=== PATIENT | female | born 1955 | race Caucasian/White ===

== ENCOUNTER 2022-03-27 12:14 | Emergency (ER) | payer MEDICARE ==
[2022-03-27 13:09] LABS: Bacteria/HPF None Seen HPF (None Seen); Bilirubin Negative (Negative); Blood, Urine Negative (Negative); Clarity Clear (Clear); Glucose, Urine (Dipstick) Normal (Negative); Ketone, Urine Negative (Negative); Leukocyte 250 Leu/uL (Negative); Nitrite Negative (Negative); Protein, Urine (Dipstick) Negative (Neg-Trace); RBC/HPF 0-3 HPF (0-3); Specific Gravity, Urine 1.005 (1.002-1.036); Squamous Epithelial 0-3 HPF (0-3); Urobilinogen Normal mg/dL (Less than 2)
[2022-03-27 13:22] LABS: #Lymphocytes 0.9 thou/uL (1.20-3.40); #Monocytes 0.9 thou/uL (0.11-0.59); #Neutrophils 11.7 thou/uL (1.40-6.50); %Basophils 0.1 % (0.0-1.0); %Eosinophils 0.1 % (0.0-10.0); %Lymphocytes 6.6 % (21.0-51.0); %Monocytes 6.5 % (0.0-10.0); %Neutrophils 86.7 % (42.0-75.0); Hemoglobin 14.9 g/dL (12.0-16.0); Mean Corpuscular HGB CONC 33.1 g/dL (32.0-36.0); Mean Corpuscular Hemoglobin 27.7 pg (27.0-31.0); Mean Corpuscular Volume 83.6 fl (78.0-98.0); Mean Platelet Volume 7.7 fL (7.4-10.4); Platelet Count 378 10x3/uL (130-400); RBC Distribution Width 12.9 % (11.5-14.5); Red Blood Cell (RBC) Count 5.39 mill/uL (4.20-5.40); White Blood Cell (WBC) Count 13.5 10x3/uL (4.8-10.8)
[2022-03-27 15:27] LABS: Albumin 3.8 g/dL (3.4-4.8)
[2022-03-27 15:28] LABS: Chloride 105 mmol/L (98-107); Potassium 3.9 mmol/L (3.5-5.1); Sodium 140 mmol/L (136-145)
[2022-03-27 15:29] LABS: Calcium 9.2 mg/dL (7.8-10.44); Glucose 93 mg/dL (80-115)
[2022-03-27 15:30] LABS: Globulin 3.6 g/dL (2.4-3.5); Protein, Total 7.4 g/dL (5.8-8.1)
[2022-03-27 15:31] LABS: Anion Gap 12 mmol/L (10-20); Bilirubin, Total 0.6 mg/dL (0.2-1.2); Carbon Dioxide 27 mmol/L (23-31)
[2022-03-27 15:32] LABS: Alkaline Phosphatase 74 U/L (40-110)
[2022-03-27 15:33] LABS: BUN (Urea Nitrogen) 9 mg/dL (9.8-20.1); Calc. Creatinine Clearance 0 mL/min (70-130); Estimated GFR 97
[2022-03-27 15:34] LABS: AST (SGOT) 33 U/L (5-34)
[2022-03-27 15:35] LABS: ALT (SGPT) Less than 35 U/L (8-55)
== END 2022-03-27 16:04 | disposition home or self-care (01) ==
LOC: ERS 12:14
DX: R19.7 Diarrhea, unspecified (principal); I10 Essential (primary) hypertension; K21.9 Gastro-esophageal reflux disease without esophagitis; J44.9 Chronic obstructive pulmonary disease, unspecified; M19.90 Unspecified osteoarthritis, unspecified site; M79.7 Fibromyalgia; Z79.899 Other long term (current) drug therapy
CPT/HCPCS: 36415; 80053; 81003; 81015; 85025; 96360; 96361

== ENCOUNTER 2022-04-09 17:28 | Inpatient (IN) | payer MEDICARE ==
[~2022-04-09 17:28] MED LIST: Iopamidol-370 76% 500 ML 1 ML ONE
[2022-04-09 18:47] LABS: Actual Bicarbonate (HCO3v) 26 mEq/L (22-28); Analyzer IN Cardio ER; Base Excess 0.3 mEq/L (-2.0 to +3.0); Calcium, Ionized (venous) 1.05 mmol/L (1.16-1.32); Chloride (VBG) 100 mmol/L (98-106); Hemoglobin (Hb) 13.7 g/dL (11.7-16.1); Potassium (VBG) 3.76 mmol/L (3.70-5.30); Sodium 133.9 mmol/L (133-146); pH (venous) 7.38 (7.32-7.43)
[2022-04-09 18:57] LABS: Hemoglobin 12.8 g/dL (12.0-16.0); Mean Corpuscular HGB CONC 33.7 g/dL (32.0-36.0); Mean Corpuscular Hemoglobin 28.8 pg (27.0-31.0); Mean Corpuscular Volume 85.5 fl (78.0-98.0); Platelet Count 252 10x3/uL (130-400); RBC Distribution Width 13.5 % (11.5-14.5); Red Blood Cell (RBC) Count 4.43 mill/uL (4.20-5.40); White Blood Cell (WBC) Count 23.4 10x3/uL (4.8-10.8)
[2022-04-09 19:14] LABS: Band 18 % (5-11); Eosinophils 1 % (0-10); Lymphocytes 3 % (21-51); MDiff Complete? YES; Monocytes 4 % (0-10); Neutrophil 73 % (42-75); Platelet Morphology Comment Appears Adequate; RBC Morphology Normal
[2022-04-09 19:19] LABS: ALT (SGPT) 12 U/L (8-55); AST (SGOT) 16 U/L (5-34); Albumin 3.2 g/dL (3.4-4.8); Alkaline Phosphatase 72 U/L (40-110); Anion Gap 13 mmol/L (10-20); BUN (Urea Nitrogen) 5 mg/dL (9.8-20.1); Bilirubin, Total 1.1 mg/dL (0.2-1.2); Calc. Creatinine Clearance 0 mL/min (70-130); Calcium 8.5 mg/dL (7.8-10.44); Carbon Dioxide 24 mmol/L (23-31); Chloride 101 mmol/L (98-107); Estimated GFR 87; Globulin 2.9 g/dL (2.4-3.5); Glucose 105 mg/dL (80-115); Potassium 3.8 mmol/L (3.5-5.1); Protein, Total 6.1 g/dL (5.8-8.1); Sodium 134 mmol/L (136-145)
[2022-04-09 20:52] LABS: Bacteria/HPF 4+ HPF (None Seen); Bilirubin Negative (Negative); Blood, Urine Negative (Negative); Clarity Turbid (Clear); Glucose, Urine (Dipstick) Normal (Negative); Ketone, Urine 20 mg/dL (Negative); Leukocyte 500 Leu/uL (Negative); Mucous/LPF Rare LPF (<2+); Nitrite Negative (Negative); Protein, Urine (Dipstick) 100 mg/dL (Neg-Trace); Renal Epithelial 0-3 HPF (None Seen); Specific Gravity, Urine 1.021 (1.002-1.036); Squamous Epithelial 21-50 HPF (0-3); Transitional Epithelial 0-3 HPF (None Seen); Urobilinogen Normal mg/dL (Less than 2); WBC/HPF Greater than 50 HPF (0-3); pH, Urine 5.5 (5.0-9.0)
[2022-04-09] MEDS ORDERED: Bisacodyl 5 MG TAB PO PRN (21:57)
[2022-04-09] MEDS ORDERED: Ondansetron PF 4 MG/2 ML Vial IVP PRN (21:57)
[2022-04-09] MEDS ORDERED: Senokot S 8.6-50 MG TAB PO PRN (21:57)
[2022-04-09] MEDS ORDERED: Bisacodyl 10 MG SUPP PR PRN (21:57)
[2022-04-09] MEDS ORDERED: Ondansetron ODT 4 MG TAB PO PRN (21:57)
[2022-04-09 22:14] LABS: Lactic Acid 1.9 mmol/L (0.5-2.2)
[2022-04-09] MEDS ORDERED: Morphine 4 MG/ML VIAL ONE (22:20)
[2022-04-09] MEDS ORDERED: diphenhydrAMINE 12.5 MG/5 ML UDCUP PO PRN (22:48)
[2022-04-09] MEDS ORDERED: Sodium Chloride 0.9% 1,000 ML IV SCH (23:00)
[2022-04-09] MEDS ORDERED: Meropenem 1 GM in Sodium Chloride 0.9% 100 ML IVPB SCH (23:00)
[2022-04-09] MEDS: Acetaminophen 325 MG TAB PO PRN (23:08)
[2022-04-09] MEDS: Sodium Chloride 0.9% 1,000 ML IV SCH (23:09)
[2022-04-09] MEDS ORDERED: Acetaminophen 325 MG TAB ONE (23:09)
[2022-04-09] MEDS ORDERED: Hydrocortisone Sod Succ/PF 100 mg/2 ml Vial IVP SCH (23:15)
[2022-04-10] MEDS ORDERED: Ondansetron ODT 4 MG TAB ONE (05:59)
[2022-04-10] MEDS ORDERED: Meropenem 1 GM in Sodium Chloride 0.9% 100 ML IVPB SCH ×2 (06:00→14:00)
[2022-04-10] MEDS ORDERED: Hydrocortisone Sod Succ/PF 100 mg/2 ml Vial IVP SCH (06:00)
[2022-04-10 06:41] LABS: Hemoglobin A1c 5.1 % (4.0-6.0)
[2022-04-10 06:56] LABS: ALT (SGPT) 15 U/L (8-55); AST (SGOT) 19 U/L (5-34); Albumin 3.2 g/dL (3.4-4.8); Alkaline Phosphatase 93 U/L (40-110); Anion Gap 19 mmol/L (10-20); BUN (Urea Nitrogen) 8 mg/dL (9.8-20.1); Bilirubin, Direct 0.5 mg/dL (0.1-0.3); Bilirubin, Total 1.1 mg/dL (0.2-1.2); Calc. Creatinine Clearance 0 mL/min (70-130); Calcium 8.9 mg/dL (7.8-10.44); Carbon Dioxide 20 mmol/L (23-31); Chloride 100 mmol/L (98-107); Estimated GFR 68; Glucose 88 mg/dL (80-115); Magnesium 1.5 mg/dL (1.6-2.6); Potassium 3.8 mmol/L (3.5-5.1); Protein, Total 6.4 g/dL (5.8-8.1); Sodium 135 mmol/L (136-145)
[2022-04-10 07:07] LABS: Hemoglobin 13.5 g/dL (12.0-16.0); Mean Corpuscular HGB CONC 31.9 g/dL (32.0-36.0); Mean Corpuscular Hemoglobin 27.6 pg (27.0-31.0); Mean Corpuscular Volume 86.4 fl (78.0-98.0); Mean Platelet Volume 8.1 fL (7.4-10.4); Platelet Count 283 10x3/uL (130-400); RBC Distribution Width 13.8 % (11.5-14.5); White Blood Cell (WBC) Count 21.9 10x3/uL (4.8-10.8)
[2022-04-10 08:03] LABS: Band 24 % (5-11); Burr Cells SLIGHT = 2-5 cells (100X) (0-1/hpf); Lymphocytes 3 % (21-51); MDiff Complete? YES; Monocytes 4 % (0-10); Neutrophil 69 % (42-75); Platelet Morphology Comment Appears Adequate; Polychromasia SLIGHT = 2-3 cells (100X) (0-2/hpf)
[2022-04-10] MEDS ORDERED: Vancomycin HCl 125 MG/5 ML (BATCHED) UDCUP PO SCH (09:00)
[2022-04-10] MEDS: Sodium Chloride 0.9% 1,000 ML IV SCH ×2 (10:11→22:21)
[2022-04-10] MEDS ORDERED: Loperamide HCl 2 MG CAP PO PRN (10:22)
[2022-04-10] MEDS: Meropenem 1 GM in Sodium Chloride 0.9% 100 ML IVPB SCH ×3 (11:03→22:24)
[2022-04-10] MEDS: Vancomycin HCl 125 MG/5 ML (BATCHED) UDCUP PO SCH ×4 (12:15→22:29)
[2022-04-10 14:59] VITALS: BMI 36.1
[2022-04-10] MEDS ORDERED: Non-Formulary Item 1 EACH (Albuterol Sulfate [Proair Digihaler] 90 MCG Aer.Pw.Bas) INH PRN (16:44)
[2022-04-10] MEDS ORDERED: Albuterol 200 PUFF (6.7GM INHALER) INH PRN (17:00)
[2022-04-10] MEDS: Ketorolac Tromethamine 30 MG/ML VIAL IVP PRN (22:27)
[2022-04-10] MEDS: Simvastatin 5 MG TAB PO SCH (22:29)
[2022-04-10] MEDS: Nortriptyline 10 MG CAP PO SCH (22:29)
[2022-04-11 05:32] LABS: Anion Gap 14 mmol/L (10-20); BUN (Urea Nitrogen) 14 mg/dL (9.8-20.1); Calc. Creatinine Clearance 85 mL/min (70-130); Calcium 8.2 mg/dL (7.8-10.44); Carbon Dioxide 21 mmol/L (23-31); Chloride 103 mmol/L (98-107); Estimated GFR 61; Glucose 86 mg/dL (80-115); Magnesium 1.4 mg/dL (1.6-2.6); Potassium 3.9 mmol/L (3.5-5.1); Sodium 134 mmol/L (136-145)
[2022-04-11 05:48] LABS: Band 40 % (5-11); Hemoglobin 11.3 g/dL (12.0-16.0); Hypochromia SLIGHT = 6-15 cells (100X) (0-5/hpf); Lymphocytes 2 % (21-51); MDiff Complete? YES; Mean Corpuscular HGB CONC 32.4 g/dL (32.0-36.0); Mean Corpuscular Hemoglobin 27.7 pg (27.0-31.0); Mean Corpuscular Volume 85.5 fl (78.0-98.0); Mean Platelet Volume 7.7 fL (7.4-10.4); Monocytes 3 % (0-10); Neutrophil 55 % (42-75); Platelet Count 288 10x3/uL (130-400); Platelet Morphology Comment Appears Adequate; RBC Distribution Width 13.7 % (11.5-14.5); Red Blood Cell (RBC) Count 4.08 mill/uL (4.20-5.40); White Blood Cell (WBC) Count 21.6 10x3/uL (4.8-10.8)
[2022-04-11] MEDS: Meropenem 1 GM in Sodium Chloride 0.9% 100 ML IVPB SCH ×3 (06:17→22:59)
[2022-04-11] MEDS: Mometasone 100 MCG/PUFF (1 INHALER) INH SCH ×2 (06:58→07:03)
[2022-04-11] MEDS: Vancomycin HCl 125 MG/5 ML (BATCHED) UDCUP PO SCH ×4 (08:53→21:31)
[2022-04-11] MEDS: Sodium Chloride 0.9% 1,000 ML IV SCH ×2 (08:58→21:27)
[2022-04-11] MEDS: Ketorolac Tromethamine 30 MG/ML VIAL IVP PRN (14:18)
[2022-04-11] MEDS: methylPREDNISolone Sod Succ 40 MG VIAL IVP SCH ×2 (14:18→21:40)
[2022-04-11] MEDS: diphenhydrAMINE 12.5 MG/5 ML UDCUP PO SCH ×3 (14:19→21:40)
[2022-04-11] MEDS ORDERED: Magnesium 2 GM/50 ML(in water) 2 GM in Premix Bag 1 BAG IVPB SCH ×2 (17:15→20:00)
[2022-04-11] MEDS: Nortriptyline 10 MG CAP PO SCH (21:30)
[2022-04-11] MEDS: Simvastatin 5 MG TAB PO SCH (21:30)
[2022-04-11] MEDS: Acetaminophen 325 MG TAB PO PRN (21:40)
[2022-04-11] MEDS ORDERED: ALPRAZolam 0.25 MG TAB PO SCH (23:00)
[2022-04-12 06:01] LABS: Anion Gap 12 mmol/L (10-20); BUN (Urea Nitrogen) 12 mg/dL (9.8-20.1); Calc. Creatinine Clearance 153 mL/min (70-130); Calcium 8.4 mg/dL (7.8-10.44); Carbon Dioxide 21 mmol/L (23-31); Chloride 105 mmol/L (98-107); Estimated GFR 101; Glucose 110 mg/dL (80-115); Sodium 134 mmol/L (136-145)
[2022-04-12 06:13] LABS: Hemoglobin 11.4 g/dL (12.0-16.0); Mean Corpuscular HGB CONC 33.1 g/dL (32.0-36.0); Mean Corpuscular Hemoglobin 28.5 pg (27.0-31.0); Mean Corpuscular Volume 86.2 fl (78.0-98.0); Mean Platelet Volume 7.8 fL (7.4-10.4); Platelet Count 292 10x3/uL (130-400); RBC Distribution Width 13.6 % (11.5-14.5); White Blood Cell (WBC) Count 19.8 10x3/uL (4.8-10.8)
[2022-04-12 06:14] LABS: Band 36 % (5-11); Hypochromia SLIGHT = 6-15 cells (100X) (0-5/hpf); Lymphocytes 1 % (21-51); MDiff Complete? YES; Neutrophil 63 % (42-75); Platelet Morphology Comment Appears Adequate
[2022-04-12] MEDS: methylPREDNISolone Sod Succ 40 MG VIAL IVP SCH ×2 (06:49→14:44)
[2022-04-12] MEDS: Meropenem 1 GM in Sodium Chloride 0.9% 100 ML IVPB SCH ×2 (06:49→14:43)
[2022-04-12] MEDS: Sodium Chloride 0.9% 1,000 ML IV SCH (08:45)
[2022-04-12] MEDS: diphenhydrAMINE 12.5 MG/5 ML UDCUP PO SCH ×2 (08:47→14:44)
[2022-04-12] MEDS: Vancomycin HCl 125 MG/5 ML (BATCHED) UDCUP PO SCH ×4 (08:47→20:55)
[2022-04-12] MEDS ORDERED: Mag-Al Plus 1200 MG/1200 MG/120 MG/30 ML UDCUP PO PRN (10:33)
[2022-04-12] MEDS ORDERED: Fosfomycin 3 GM/Packet PO SCH (16:00)
[2022-04-12] MEDS ORDERED: predniSONE 20 MG TAB PO SCH (16:15)
[2022-04-12] MEDS ORDERED: Ibuprofen 200 MG TAB PO PRN (16:21)
[2022-04-12] MEDS: Nortriptyline 10 MG CAP PO SCH (20:54)
[2022-04-12] MEDS: Simvastatin 5 MG TAB PO SCH (20:55)
[2022-04-12] MEDS: diphenhydrAMINE 25 MG CAP PO SCH (20:55)
[2022-04-12] MEDS ORDERED: ALPRAZolam 0.25 MG TAB PO SCH (21:00)
[2022-04-13 06:30] LABS: Anion Gap 12 mmol/L (10-20); BUN (Urea Nitrogen) 16 mg/dL (9.8-20.1); Calc. Creatinine Clearance 138 mL/min (70-130); Calcium 8.9 mg/dL (7.8-10.44); Carbon Dioxide 24 mmol/L (23-31); Chloride 103 mmol/L (98-107); Estimated GFR 98; Glucose 92 mg/dL (80-115); Potassium 3.9 mmol/L (3.5-5.1); Sodium 135 mmol/L (136-145)
[2022-04-13 06:37] LABS: Band 27 % (5-11); Hemoglobin 12.1 g/dL (12.0-16.0); Lymphocytes 4 % (21-51); MDiff Complete? YES; Mean Corpuscular HGB CONC 32.6 g/dL (32.0-36.0); Mean Corpuscular Hemoglobin 27.9 pg (27.0-31.0); Mean Corpuscular Volume 85.6 fl (78.0-98.0); Mean Platelet Volume 7.6 fL (7.4-10.4); Monocytes 9 % (0-10); Neutrophil 60 % (42-75); Platelet Count 352 10x3/uL (130-400); Platelet Morphology Comment Appears Adequate; RBC Distribution Width 13.7 % (11.5-14.5); Red Blood Cell (RBC) Count 4.33 mill/uL (4.20-5.40); White Blood Cell (WBC) Count 24.6 10x3/uL (4.8-10.8)
[2022-04-13] MEDS: Mometasone 100 MCG/PUFF (1 INHALER) INH SCH (07:04)
[2022-04-13] MEDS: predniSONE 20 MG TAB PO SCH (09:48)
[2022-04-13] MEDS: diphenhydrAMINE 25 MG CAP PO SCH ×2 (09:48→13:31)
[2022-04-13] MEDS: Vancomycin HCl 125 MG/5 ML (BATCHED) UDCUP PO SCH ×4 (13:21→21:05)
[2022-04-13] MEDS ORDERED: diphenhydrAMINE 25 MG CAP PO PRN (16:04)
[2022-04-13] MEDS: Nortriptyline 10 MG CAP PO SCH (21:04)
[2022-04-13] MEDS: Simvastatin 5 MG TAB PO SCH (21:05)
[2022-04-14] MEDS ORDERED: ALPRAZolam 0.25 MG TAB PO SCH (05:00)
[2022-04-14 06:08] LABS: Hemoglobin 11.6 g/dL (12.0-16.0); Mean Corpuscular HGB CONC 32.5 g/dL (32.0-36.0); Mean Corpuscular Hemoglobin 27.6 pg (27.0-31.0); Mean Corpuscular Volume 84.9 fl (78.0-98.0); Mean Platelet Volume 7.1 fL (7.4-10.4); Platelet Count 390 10x3/uL (130-400); RBC Distribution Width 13.7 % (11.5-14.5); Red Blood Cell (RBC) Count 4.19 mill/uL (4.20-5.40); White Blood Cell (WBC) Count 17.4 10x3/uL (4.8-10.8)
[2022-04-14 06:20] LABS: Anion Gap 11 mmol/L (10-20); BUN (Urea Nitrogen) 18 mg/dL (9.8-20.1); Calc. Creatinine Clearance 145 mL/min (70-130); Calcium 8.8 mg/dL (7.8-10.44); Carbon Dioxide 24 mmol/L (23-31); Chloride 104 mmol/L (98-107); Estimated GFR 100; Glucose 76 mg/dL (80-115); Potassium 3.4 mmol/L (3.5-5.1); Sodium 136 mmol/L (136-145)
[2022-04-14 06:49] LABS: Band 2 % (5-11); Lymphocytes 8 % (21-51); MDiff Complete? YES; Monocytes 3 % (0-10); Neutrophil 87 % (42-75); Ovalocytes SLIGHT = 2-5 cells (100X) (0-1/hpf); Platelet Morphology Comment Appears Adequate
[2022-04-14] MEDS: Mometasone 100 MCG/PUFF (1 INHALER) INH SCH (08:20)
[2022-04-14] MEDS ORDERED: Lisinopril 20 MG TAB PO SCH (09:00)
[2022-04-14] MEDS ORDERED: Amlodipine 5 MG TAB PO SCH (09:00)
[2022-04-14] MEDS ORDERED: Lisinopril 5 MG TAB PO SCH (09:00)
[2022-04-14] MEDS: Vancomycin HCl 125 MG/5 ML (BATCHED) UDCUP PO SCH ×2 (09:25→12:42)
[2022-04-14] MEDS: predniSONE 20 MG TAB PO SCH (09:28)
[2022-04-14] MEDS ORDERED: Furosemide 20 MG/2 ML VIAL SLOW IVP SCH (10:15)
[2022-04-14] MEDS: Acetaminophen 325 MG TAB PO PRN (11:07)
[2022-04-14 12:43] VITALS: BP 127/72; TEMP 98.2
[2022-04-14] MEDS ORDERED: Neomycin-Polymyxin-Hc 7.5 ML BOT EA EYE SCH (15:00)
== END 2022-04-14 16:18 | DRG 872 ==
LOC: SUATTDRO 17:28 → ERS 17:28 → ERHOLD 21:51 → 2SW 04-10 14:23 → OBSVTOIN 04-10 15:59 → SURG B 04-12 20:17
PROVIDERS: ADMIT Internal Medicine; ATTEND Internal Medicine
DX: A41.9 Sepsis, unspecified organism (principal); N30.00 Acute cystitis without hematuria; J96.11 Chronic respiratory failure with hypoxia; I74.2 Embolism and thrombosis of arteries of the upper extremities; T82.868A Thrombosis due to vascular prosthetic devices, implants and grafts, initial encounter; L40.9 Psoriasis, unspecified; I25.10 Atherosclerotic heart disease of native coronary artery without angina pectoris; J44.9 Chronic obstructive pulmonary disease, unspecified; M79.7 Fibromyalgia; Y84.8 Other medical procedures as the cause of abnormal reaction of the patient, or of later complication, without mention of misadventure at the time of the procedure; T38.0X5A Adverse effect of glucocorticoids and synthetic analogues, initial encounter; Z88.1 Allergy status to other antibiotic agents; Z86.16 Personal history of COVID-19; Z87.01 Personal history of pneumonia (recurrent); Z88.2 Allergy status to sulfonamides; Z88.8 Allergy status to other drugs, medicaments and biological substances; Z86.19 Personal history of other infectious and parasitic diseases; Z99.81 Dependence on supplemental oxygen; Z79.52 Long term (current) use of systemic steroids; Z95.1 Presence of aortocoronary bypass graft
CPT/HCPCS: 36415; 71045; 74177; 80048; 80053; 80076; 81003; 81015; 82533; 82805; 83036; 83605; 83735; 83880; 84443; 84484; 85025; 87040; 87324; 87449; 93005; 96360; 96372; G0378; J1650; J1885; J2185; J2270; J2920; J3475; J3490; J7050; J7512; Q0162; Q0163; Q9967